=== PATIENT | male | born 1965 | race Two or more races ===

== ENCOUNTER → 2017-03-22 | Day surgery (SDC) | payer OTHER ==
[~2017-03-22] VITALS: Ht 162.6 cm; Wt 59.9 kg
[2017-03-22 06:37] VITALS: BP 127/92
[2017-03-22 16:22] VITALS: BP 134/92
== END | disposition home or self-care (01) ==
LOC: DS 06:04 → OR 10:00 → DS 12:00
PROVIDERS: Neuromusculoskeletal Medicine, Sports Medicine
PROC: 0PST04Z Reposition Right Finger Phalanx with Internal Fixation Device, Open Approach (ICD-10-PCS; principal; 2017-03-22 12:00)
DX: S62.610B Displaced fracture of proximal phalanx of right index finger, initial encounter for open fracture (principal); X58.XXXA Exposure to other specified factors, initial encounter; Y92.9 Unspecified place or not applicable
CPT/HCPCS: C1713; J0690; J2250; J2270; J2405; J2704; J3010; J3490